=== PATIENT | male | born 1950 | race Caucasian/White ===

== ENCOUNTER 2018-03-30 00:52 | Emergency (ER) | payer SELFPAY ==
[2018-03-30] MEDS ORDERED: MAGNESIUM SULF 1GM/2ML VIAL IV ONE (00:53)
[2018-03-30] MEDS ORDERED: NA CHLORIDE 0.9% 1,000 ML IV ONE (00:53)
[2018-03-30] MEDS ORDERED: Caclcium Chloride 10% INJ SYR IV ONE (00:53)
[2018-03-30] MEDS ORDERED: ATROPINE SULF 1 MG/10 ML SYR IV ONE (00:53)
[2018-03-30] MEDS ORDERED: EPINEPHrine 1 MG/10 ML SYR IV ONE (00:53)
[2018-03-30 01:27] LABS: Protime INR 1.1
[2018-03-30 01:29] LABS: Absolute Lymphocytes (CBC) 4.7 K/uL (0.7-4.9); Absolute Neutrophil 7.9 K/uL (1.8-8.0); Basophils % 0.8 % (0-1.3); Eosinophils % 2.7 % (0-4.4); Hematocrit 53.8 % (39.6-49.0); Lymphocytes % 33.3 % (15.3-44.8); MCH 31.2 pg (27.0-35.0); MCV 94.8 fL (80-100); MPV 8.9 fL (7.6-11.3); Monocytes % 7.3 % (3.3-12.3); RBC Red Blood Cell Count 5.67 M/uL (4.33-5.43)
[2018-03-30 01:40] LABS: ALT/SGPT 34 U/L (12-78); AST/SGOT 19 U/L (15-37); Albumin 3.5 g/dL (3.4-5.0); Alkaline Phosphatase 130 U/L (45-117); BUN Blood Urea Nitrogen 25 mg/dL (7-18); Bicarbonate 24 mmol/L (21-32); Bilirubin Direct 0.5 mg/dL (0-0.2); Bilirubin Total 1.8 mg/dL (0.2-1.0); Glucose Level 205 mg/dL (74-106); Magnesium 2.4 mg/dL (1.8-2.4); NT PRO-BNP 1078 pg/mL (<125); Potassium 3.6 mmol/L (3.5-5.1); Protein, Total 6.9 g/dL (6.4-8.2); Sodium Level 134 mmol/L (136-145); Troponin (Emerg Dept Use Only) < 0.02 ng/mL (0.0-0.045)
--- NOTE | 2018-03-30 01:46 | EDPHYS ---
Physician Documentation [facility] Name: Torres Cobb Age: 67 yrs Sex: Male : 1950 Arrival Date: 03/30/2018 Time: 00:52 Bed 3 Private MD: ED Physician Segun Weber HPI: 03/30 02:26 This 67 yrs old Male presents to ER via Unassigned with complaints of CPR. ma2 01:21 The patient or guardian reports chest pain that is located primarily in the anterior ma2 chest wall. Onset:. 01:22 The chest pain is described as burning. Duration: The patient or guardian reports a ma2 single episode, that lasted 1 hour(s). EMS care prior to arrival includes: epinephrine, IV fluids, supplemental oxygen. hx of copd had chest pain and sob while driving when ems, then he passed out and had no pulse. his passenger friend started cpr until ems arrived for 8 min.. EMS found he he had v-fib and defibrillated him, he had pulse right after 2 round of epi, upon arrival to er he had STEMI with complete heart block given atropine and placed on transcutaneous pacemaker and had BP 120/80, he lost pulse in the er briefly and had 3 rounds of epinephrine was asystolic during this time and cpr then had ROSC.. was intubated by EMS ET tube confirmed by CXR. Historical: - PMHx: 03:41 Unable to obtain; bb - Immunization history:: Last tetanus immunization: unknown, Flu vaccine status is unknown. - Social history:: Patient/guardian denies using alcohol, street drugs, The patient lives with family, Smoking status: Patient/guardian denies using tobacco, Patient uses alcohol, on a daily basis. - Family history:: not pertinent. - Ebola Screening: : Patient negative for fever greater than or equal to 101.5 degrees Fahrenheit, and additional compatible Ebola Virus Disease symptoms Patient denies exposure to infectious person Patient denies travel to an Ebola-affected area in the 21 days before illness onset. ROS: 01:22 Unable to obtain ROS due to patient is on ventilator. ma2 Exam: 01:22 Male : Normal genitalia with no discharge or lesions. Skin: Warm, dry with normal ma2 turgor. Normal color with no rashes, no lesions, and no evidence of cellulitis. 01:22 Constitutional: The patient appears comatose. 01:22 Head/face: Noted is 01:31 Chest/axilla: Inspection: no acute changes. ma2 01:31 Cardiovascular: Rate: bradycardic, Rhythm: regular, Pulses: weak, Edema: 2+ edema to level of left midcalf and right midcalf, Bilateral blood pressure: is equal. 01:31 Respiratory: intubated ventilated equal air entry bilat, tube at 23 at lip. 01:31 Abdomen/GI: Inspection: distension, Palpation: soft, Liver: no appreciated palpable abnormalities. 01:31 Musculoskeletal/extremity: Extremities: all appear grossly normal, with no appreciated pain with palpation. 01:31 Neuro: gcs 3. Vital Signs: 00:49 BP 160 / 107; Pulse 38; Resp 16; Temp 95.7(R); Pulse Ox 90% on ETT ambu; Weight 127.01 fc kg (R); Height 5 ft. 11 in. (180.34 cm) (R); Pain 0/10; 01:00 BP 82 / 61; Pulse 100; Resp 16; Pulse Ox 100% on 100% FiO2 ETT vent; fc 01:18 BP 164 / 85; Pulse 122; Resp 16; Pulse Ox 88% on 100% FiO2 ETT vent; fc 01:28 BP 155 / 85; Pulse 92; Resp 16; Pulse Ox 87% on 100% FiO2 ETT vent; fc 01:34 BP 204 / 89; Pulse 117; Resp 16; Pulse Ox 87% on 100% FiO2 ETT vent; fc 01:38 BP 170 / 111; Pulse 149; Resp 16; Pulse Ox 94% on 100% FiO2 ETT vent; fc 01:47 BP 218 / 128; Pulse 127; Resp 16; Pulse Ox 91% on ETT ambu; fc 01:54 BP 107 / 76; Pulse 120; Resp 16; Pulse Ox 90% on ETT ambu; fc 01:59 BP 64 / 55; Pulse 110; Resp 18; Pulse Ox 86% on 100% FiO2 ETT vent; fc 02:05 BP 73 / 53; Pulse 84; Resp 18; Pulse Ox 92% on 100% FiO2 ETT vent; fc 02:08 BP 199 / 99; Pulse 96; Resp 18; Pulse Ox 91% on 100% FiO2 ETT vent; fc 02:14 BP 164 / 84; Pulse 122; Resp 16; Pulse Ox 96% on 100% FiO2 ETT vent; fc 02:19 BP 97 / 74; Pulse 116; Resp 16; Pulse Ox 93% on 100% FiO2 ETT vent; fc 02:28 BP 83 / 71; Pulse 108; Resp 16; Pulse Ox 91% on 100% FiO2 ETT vent; fc 02:28 BP 93 / 73; Pulse 108; Resp 18; Pulse Ox 90% on 100% FiO2 ETT vent; fc 00:49 Body Mass Index 39.05 (127.01 kg, 180.34 cm) fc Benjamin Coma Score: 00:49 Eye Response: none(1). Verbal Response: none(1). Motor Response: none(1). Total: 3. fc 01:31 Eye Response: none(1). Verbal Response: none(1). Motor Response: none(1). Total: 3. ma2 Ventilator: 00:52 Fi02: 100%; Rate: 16min; T.V.: 700ml; Mode: CMV; ET tube: 23 mm (Oral); fc Procedures: 01:31 CPR: The presenting cardiac rhythm is asystole. placed on ventilator, Compressions: ma2 began Meds given: Epinephrine X 2, Pacing: the patient was paced with an external pacer, rate set at 100 beats/min., current set at 100 milliamps., set in. MDM: 01:20 Patient medically screened. ma2 01:31 Differential diagnosis: acute myocardial infarction, coronary artery disease pulmonary ma2 embolus, thoracic aortic disection. Data reviewed: vital signs, nurses notes. Counseling: I had a detailed discussion with the patient and/or guardian regarding: the historical points, exam findings, and any diagnostic results supporting the discharge/admit diagnosis. ED course: patient had inferior STEMI, stable for transfer pulse of 100 and BP 180/80, he is intubated, will emergently transfer for cath, will fly him, cath not available in our hospital . ED course: discussed and accepted by Dr. Wiseman. 03/30 00:57 Order name: Basic Metabolic Panel; Complete Time: 01:58 03/30 00:57 Order name: CBC with Diff 03/30 00:57 Order name: LFT's; Complete Time: 01:59 03/30 00:57 Order name: Magnesium; Complete Time: 01:59 03/30 00:57 Order name: NT PRO-BNP; Complete Time: 01:59 03/30 00:57 Order name: PT-INR; Complete Time: 01:59 03/30 00:53 Order name: Chest Single View XRAY 03/30 00:57 Order name: Troponin (emerg Dept Use Only); Complete Time: 01:59 03/30 01:44 Order name: Manual Differential EDMS 03/30 02:24 Order name: Slides for Pathologist Review EDMS 03/30 00:57 Order name: EKG; Complete Time: 00:57 03/30 00:57 Order name: Cardiac monitoring; Complete Time: 02:22 03/30 00:57 Order name: EKG - Nurse/Tech; Complete Time: 02:22 03/30 00:57 Order name: IV Saline Lock; Complete Time: 02:22 03/30 00:57 Order name: Labs collected and sent; Complete Time: 02:22 03/30 00:57 Order name: O2 Per Protocol; Complete Time: 02:22 03/30 00:57 Order name: O2 Sat Monitoring; Complete Time: 02:23 Administered Medications: 00:53 Drug: Atropine 1 mg {Note: Adina.} Route: IVP; Site: right antecubital; 00:59 Drug: NS 0.9% 1000 ml {Note: per Nichol RN.} Route: IV; Rate: 1 bolus; Site: left fc antecubital; 01:11 Drug: EPINEPHrine 0.1mg/mL 1:10,000 1 mg {Note: per Nichol RN.} Route: IVP; Site: right fc antecubital; 01:13 Drug: Sodium Bicarbonate 1 amp {Note: per Nichol RN.} Route: IVP; Site: right fc antecubital; 01:14 Drug: EPINEPHrine 0.1mg/mL 1:10,000 1 mg {Note: per Nichol RN.} Route: IVP; Site: right fc antecubital; 01:17 Drug: EPINEPHrine 0.1mg/mL 1:10,000 1 mg {Note: per Nichol RN.} Route: IVP; Site: right fc antecubital; 01:28 Drug: Sodium Bicarbonate 1 amp {Note: per Nichol RN.} Route: IVP; Site: left fc antecubital; 01:31 Drug: Atropine 1 mg {Note: 1/2 amp per Nichol RN.} Route: IVP; Site: left antecubital; fc 01:32 Drug: EPINEPHrine 0.1mg/mL 1:10,000 1 mg {Note: per Nichol RN.} Route: IVP; Site: left fc antecubital; 01:45 Drug: EPINEPHrine 0.1mg/mL 1:10,000 1 mg {Note: per Nichol RN.} Route: IVP; Site: left fc antecubital; 01:46 Drug: Calcium Chloride 10% 10 ml {Note: per Nichol RN.} Route: IVP; Site: left fc antecubital; 01:47 Drug: NS 0.9% 1000 ml {Note: per Nichol RN.} Route: IV; Rate: 1 bolus; Site: left fc antecubital; 01:52 Drug: Magnesium Sulfate 2 grams {Note: per Nichol RN.} Route: IVPB; Infused Over: 2 fc mins; Site: left antecubital; 01:58 Not Given (blood noted in NGT): Heparin ([place] Drip) 12 units/kg/hr - (HEParin 34523 kl units, D5W 500 ml) IV at calculated rate Per protocol; Max initial rate 1000 units/hr 02:03 Not Given (blood noted in NGT): HEParin 5000 units IV at bolus once kl 02:04 Drug: Levophed (4 mg/250 mL D5W 4 mcg/min {Note: per nichol rn.} Route: IV; Rate: fc calculated rate; Site: left antecubital; 02:07 Drug: EPINEPHrine 0.1mg/mL 1:10,000 1 mg {Note: per Nichol RN.} Route: IVP; Site: right fc antecubital; 02:12 Drug: Pantoprazole 8 mg/hr {Note: per Nichol RN.} Route: IV; Rate: 25 ml/hr; Site: fc right antecubital; 02:23 Drug: Pantoprazole 40 mg {Note: per Shaunna.} Route: IVP; Site: right antecubital; 02:35 Not Given (wrongorder): Calcium Chloride 1 grams IVP once fc Point of Care Testing: Blood Glucose: 00:57 Blood Glucose: 159 mg/dL; fc Ranges: Critical Glucose Levels:Adult <50 mg/dl or >400 mg/dl <40 mg/dl or >180 mg/dl Disposition: 03/30/18 01:[address] [facility]. Diagnosis is ST elevation (STEMI) myocardial infarction of unspecified site. - Reason for transfer: Higher level of care. - Accepting physician is Dr. Wiseman. - Condition is Stable. - Problem is new. - Symptoms are unchanged. Signatures: Dispatcher [employer] EDMS Liat Mendoza RN RN fc Nichol Alvares RN RN bb Alzahri, Mohammad, MD MD ma2 Bev Taylor RN Corrections: (The following items were deleted from the chart) 03:42 01:45 03/30/2018 01:[address] [facility]. Diagnosis is bb ST elevation (STEMI) myocardial infarction of unspecified site. Reason for transfer: Higher level of care. Accepting physician is Dr. Wiseman. Condition is Stable. Problem is new. Symptoms are unchanged. ma2
--- NOTE | 2018-03-30 01:46 | ER ---
Nurse's Notes [facility] Name: Torres Cobb Age: 67 yrs Sex: Male : 1950 Arrival Date: 03/30/2018 Time: 00:52 Bed 3 Private MD: Diagnosis: ST elevation (STEMI) myocardial infarction of unspecified site Presentation: 03/30 00:49 Presenting complaint: EMS states: that they were toned for pt with chest pain, upon fc their arrival pt was in fine vfib with bystanders performing CPR. son arrived at 0100 to state that he and pt had just left local bar in separate cars. Approx 3 blocks later pt pulled over. Then son pulled over behind him. Upon getting to pt's car pt was unresponsive and blue. He started CPR and called 911. Care prior to arrival: Assisted ventilation, Oral intubation, CPR performed by bystander Shocked x 2, ETT is an 8.0 tube 23 at the lip Medication(s) given: Normal saline infusion, 500 mL, EPI x 2 IV initiated. 18 GA, in the right antecubital area, and I/O to left Tib Glucose check: 169 Oxygen administered. via AMBU bag. Compressions began prior to arrival. 00:49 Method Of Arrival: EMS: [facility] 00:49 Acuity: STEPHEN 1 00:49 Transition of care: patient was not received from another setting of care. Onset of symptoms was March 30, 2018. Risk Assessment: Do you want to hurt yourself or someone else? Patient reports no desire to harm self or others. Initial Sepsis Screen: Does the patient meet any 2 criteria? Systolic BP < 90 mmHg. Mean Arterial Pressure (MAP) < 65. Yes Does the patient have a suspected source of infection? No. Patient's initial sepsis screen is negative. Triage Assessment: 01:00 General: Appears distressed, obese, Behavior is unresponsive. Pain: Unable to use pain bb scale. FLACC scale score is 0 out of 10. Patient is intubated. Patient is unresponsive. Neuro: Level of Consciousness is unresponsive. Cardiovascular: pt is cyanotic. faint pulse palpated by Dr Catalan Rhythm is sinus bradycardia. Respiratory: Airway via oral intubation Respiratory effort is assisted bagged with BVM Breath sounds with crackles bilaterally. GI: Abdomen is distended, Abd is rigid X 4 quads. Derm: Skin is cyanotic. Historical: - PMHx: 03:41 Unable to obtain; bb - Immunization history:: Last tetanus immunization: unknown, Flu vaccine status is unknown. - Social history:: Patient/guardian denies using alcohol, street drugs, The patient lives with family, Smoking status: Patient/guardian denies using tobacco, Patient uses alcohol, on a daily basis. - Family history:: not pertinent. - Ebola Screening: : Patient negative for fever greater than or equal to 101.5 degrees Fahrenheit, and additional compatible Ebola Virus Disease symptoms Patient denies exposure to infectious person Patient denies travel to an Ebola-affected area in the 21 days before illness onset. Screenin:49 Abuse screen: Denies threats or abuse. Nutritional screening: No deficits noted. Tuberculosis screening: No symptoms or risk factors identified. 01:00 Fall Risk Total Campo Fall Scale indicates High Risk Score (45 or more points). Fall bb prevention measures have been instituted. Side Rails Up X 2 Frequent Obs/Assessments Occuring. Assessment: 01:00 Reassessment: No changes from previously documented assessment. see triage assessment. bb 01:00 CPR assessment: unresponsive, intubated, Ambu ventilation. bb 01:09 Reassessment: Dr Catalan at bedside for code. bb 01:36 Reassessment: Son at bedside and spoke with Dr Weber. 01:41 Reassessment: and Daughter have arrived and are at bedside. 01:45 Reassessment: family instructed on need to transfer pt to [facility] for higher level of care they verbalized understanding of and agree to plan of care. 01:51 Reassessment: Son given pts [employer] Lic. has left the room and is waiting room at this time. 02:19 Reassessment: Report called to Leroy PAYNE at [facility]. ea 02:35 Reassessment: [facility] at bedside for transport of pt to [facility]. bb Pt remains unresponsive, ETT in place, IV sites intact, patent, with fluids infusing, OG tube in place to low intermittent suction with nicola blood in tube, benitez catheter in place. Pt transferred to EMS stretcher with no change in condition. Vital Signs: 00:49 BP 160 / 107; Pulse 38; Resp 16; Temp 95.7(R); Pulse Ox 90% on ETT ambu; Weight 127.01 fc kg (R); Height 5 ft. 11 in. (180.34 cm) (R); Pain 0/10; 01:00 BP 82 / 61; Pulse 100; Resp 16; Pulse Ox 100% on 100% FiO2 ETT vent; fc 01:18 BP 164 / 85; Pulse 122; Resp 16; Pulse Ox 88% on 100% FiO2 ETT vent; fc 01:28 BP 155 / 85; Pulse 92; Resp 16; Pulse Ox 87% on 100% FiO2 ETT vent; fc 01:34 BP 204 / 89; Pulse 117; Resp 16; Pulse Ox 87% on 100% FiO2 ETT vent; fc 01:38 BP 170 / 111; Pulse 149; Resp 16; Pulse Ox 94% on 100% FiO2 ETT vent; fc 01:47 BP 218 / 128; Pulse 127; Resp 16; Pulse Ox 91% on ETT ambu; fc 01:54 BP 107 / 76; Pulse 120; Resp 16; Pulse Ox 90% on ETT ambu; fc 01:59 BP 64 / 55; Pulse 110; Resp 18; Pulse Ox 86% on 100% FiO2 ETT vent; fc 02:05 BP 73 / 53; Pulse 84; Resp 18; Pulse Ox 92% on 100% FiO2 ETT vent; fc 02:08 BP 199 / 99; Pulse 96; Resp 18; Pulse Ox 91% on 100% FiO2 ETT vent; 02:14 BP 164 / 84; Pulse 122; Resp 16; Pulse Ox 96% on 100% FiO2 ETT vent; 02:19 BP 97 / 74; Pulse 116; Resp 16; Pulse Ox 93% on 100% FiO2 ETT vent; 02:28 BP 83 / 71; Pulse 108; Resp 16; Pulse Ox 91% on 100% FiO2 ETT vent; fc 02:28 BP 93 / 73; Pulse 108; Resp 18; Pulse Ox 90% on 100% FiO2 ETT vent; 00:49 Body Mass Index 39.05 (127.01 kg, 180.34 cm) [place] Coma Score: 00:49 Eye Response: none(1). Verbal Response: none(1). Motor Response: none(1). Total: 3. fc 01:31 Eye Response: none(1). Verbal Response: none(1). Motor Response: none(1). Total: 3. ma2 ED Course: 00:49 Maintain EMS IV. Dressing intact. Good blood return noted. Site clean \T\ dry. Gauge \T\ fc site: Left tib IO and 18 gauge to right a/c. 00:49 Patient has correct armband on for positive identification. Bed in low position. Call fc light in reach. 00:52 Patient arrived in ED. al2 00:55 Inserted saline lock: 18 gauge in left antecubital area, using aseptic technique. fc ,using aseptic technique. per Kyle Tech. 01:00 EKG done, by ED staff, reviewed by Segun Weber MD. fc 01:00 with code see code sheet. bb 01:00 Patient placed in an exam room, on a stretcher, on oxygen, on airport screener, on pulse bb oximetry, Dr Miramontes at bedside with this RN, Liat RN, Tiffanie RN, Yong RT, Nicholas RT, [place] oil burner technician at bedside to receive pt. 01:05 NGT: inserted 18 Fr. other orally verified return of gastric contents, to intermittent fc suction. return dark bloody liquid. 01:06 Benitez cath inserted, using sterile technique, 16 Fr., by psychiatric aides teacher, balloon inflated, to fc gravity drainage. 01:07 X-ray completed. Portable x-ray completed in exam room. sg4 01:10 Chest Single View XRAY In Process Unspecified. EDMS 01:20 Segun Weber MD is Attending Physician. ma2 01:49 EKG done, by ED staff, reviewed by Segun Weber MD. fc 02:35 Patient transferred, IV remains in place. bb 03:01 Triage completed. fc Administered Medications: 00:53 Drug: Atropine 1 mg {Note: Adina.} Route: IVP; Site: right antecubital; 00:59 Drug: NS 0.9% 1000 ml {Note: per Nichol PAYNE.} Route: IV; Rate: 1 bolus; Site: left fc antecubital; 01:11 Drug: EPINEPHrine 0.1mg/mL 1:10,000 1 mg {Note: per Nichol PAYNE.} Route: IVP; Site: right fc antecubital; 01:13 Drug: Sodium Bicarbonate 1 amp {Note: per Nichol PAYNE.} Route: IVP; Site: right fc antecubital; 01:14 Drug: EPINEPHrine 0.1mg/mL 1:10,000 1 mg {Note: per Nichol RN.} Route: IVP; Site: right fc antecubital; 01:17 Drug: EPINEPHrine 0.1mg/mL 1:10,000 1 mg {Note: per Nichol RN.} Route: IVP; Site: right fc antecubital; 01:28 Drug: Sodium Bicarbonate 1 amp {Note: per Nichol RN.} Route: IVP; Site: left fc antecubital; 01:31 Drug: Atropine 1 mg {Note: 1/2 amp per Ncihol RN.} Route: IVP; Site: left antecubital; 01:32 Drug: EPINEPHrine 0.1mg/mL 1:10,000 1 mg {Note: per Nichol RN.} Route: IVP; Site: left fc antecubital; 01:45 Drug: EPINEPHrine 0.1mg/mL 1:10,000 1 mg {Note: per Nichol RN.} Route: IVP; Site: left fc antecubital; 01:46 Drug: Calcium Chloride 10% 10 ml {Note: per Nichol RN.} Route: IVP; Site: left fc antecubital; 01:47 Drug: NS 0.9% 1000 ml {Note: per Nichol RN.} Route: IV; Rate: 1 bolus; Site: left fc antecubital; 01:52 Drug: Magnesium Sulfate 2 grams {Note: per Nichol RN.} Route: IVPB; Infused Over: 2 fc mins; Site: left antecubital; 01:58 Not Given (blood noted in NGT): Heparin ([place] Drip) 12 units/kg/hr - (HEParin 57254 kl units, D5W 500 ml) IV at calculated rate Per protocol; Max initial rate 1000 units/hr 02:03 Not Given (blood noted in NGT): HEParin 5000 units IV at bolus once kl 02:04 Drug: Levophed (4 mg/250 mL D5W 4 mcg/min {Note: per nichol rn.} Route: IV; Rate: fc calculated rate; Site: left antecubital; 02:07 Drug: EPINEPHrine 0.1mg/mL 1:10,000 1 mg {Note: per Nichol RN.} Route: IVP; Site: right fc antecubital; 02:12 Drug: Pantoprazole 8 mg/hr {Note: per Nichol PAYNE.} Route: IV; Rate: 25 ml/hr; Site: fc right antecubital; 02:23 Drug: Pantoprazole 40 mg {Note: per } Route: IVP; Site: right antecubital; 02:35 Not Given (wrongorder): Calcium Chloride 1 grams IVP once fc Point of Care Testing: Blood Glucose: 00:57 Blood Glucose: 159 mg/dL; fc Ranges: Ventilator: 00:52 Fi02: 100%; Rate: 16min; T.V.: 700ml; Mode: CMV; ET tube: 23 mm (Oral); fc Outcome: 01:45 ER care complete, transfer ordered by MD. powell 02:30 Outcome Resuscitation successful bb 02:35 Transferred by helicopter to [facility], Transfer form completed. X-rays sent bb w/ patient. 02:35 Condition: improved 02:35 Instructed on family instructed on need for transfer see nurses notes. 03:42 Patient left the ED. bb Signatures: Dispatcher [employer] EDMS Liat Mendoza RN RN Nichol Alvares RN RN Tiffanie Foster, RN RN Sonia Read Mohammad, MD MD ma2 Garcia, Susana sg4 Lewis, Kimberly RN kl Corrections: (The following items were deleted from the chart) 02:54 02:45 Inserted saline lock: 18 gauge in left antecubital area, using aseptic technique. fc ,using aseptic technique. per Where I've Been fc 03:19 03:17 Reassessment: and Daughter have arrived and are at bedside fc fc
[2018-03-30] MEDS ORDERED: HEPARIN/D5W 25,000 UNIT/500 ML BAG IV ONE (02:04)
[2018-03-30] MEDS ORDERED: HEPARIN 5000 UNIT/ML 1 ML VIAL ONE (02:04)
[2018-03-30] MEDS ORDERED: NOREPINEPHRINE 4 MG/4 ML VIAL ONE (02:10)
[2018-03-30] MEDS ORDERED: D5W 250 ML IV ONE (02:11)
[2018-03-30] MEDS ORDERED: PANTOPRAZOLE 40 MG INJ ONE ×2 (02:12→02:14)
[2018-03-30] MEDS ORDERED: NA CHLORIDE 0.9% 250 ML ONE (02:14)
[2018-03-30 02:22] LABS: Blood Morphology Comment NOT SEEN (NOT SEEN); Platelet Estimate ADEQ
[2018-03-30 03:47] LABS: Arterial Blood Carboxyhemoglob 0.9 % (0-1.5); Blood Gas Oxyhemoglobin 89.9 % (94-97); Blood O2 Saturation 91.7 % (92-98.5)
--- NOTE | 2018-03-30 08:04 | RAD REPORT ---
EXAM DESCRIPTION: RAD - Chest Single View - 03/30/2018 1:10 am CLINICAL HISTORY: Intubation COMPARISON: None. TECHNIQUE: AP portable chest image was obtained 0053 hours . FINDINGS: Endotracheal tube is in place. Tip is the T5 level top of the aortic arch. This is at leas t 2 cm above the lux. Patchy airspace opacification is present in the right lung base suspicious f or pneumonia. Lung markings are accentuated by supine portable imaging and shallow inspiration. Cardi omediastinal silhouette is enlarged. This is difficult to accurately assess due to supine positioning and shallow inspiration. No pneumothorax or large pleural effusion. No acute bony abnormality seen. No acute aortic findings suspected. IMPRESSION: ET tube in good position. Patchy right base opacification suspicious for pneumonia. Enlarged cardiomediastinal silhouette. Assessment is limited with shallow inspiration and supine posi tioning.
--- NOTE | 2018-03-30 15:17 | EKG ---
Test Date: 2018-03-30 Test Time: 01:00:06 [employer] Sales Consultant: MODESTO MEASUREMENT RESULTS: Intervals: Rate: 33 CT: QRSD: 216 QT: 546 QTc: 404 [place]: P: CT: QRS: 269 T: 70 INTERPRETIVE STATEMENTS: Idioventricular rhythm Right bundle branch block Inferior infarct, age undetermined Abnormal ECG No previous ECG available for comparison Electronically Signed On 03-30-18 15:16:40 GREASE MAKER HEAD by Peter Ferreira
--- NOTE | 2018-03-31 11:35 | EKG ---
Test Date: 2018-03-30 Test Time: 01:49:35 Energy Assistant: MEASUREMENT RESULTS: Intervals: Rate: 129 [place]: QRSD: 164 QT: 364 QTc: 533 [place]: P: CA: QRS: 159 T: 30 INTERPRETIVE STATEMENTS: Ventricular tachycardia Abnormal ECG Compared to ECG 03/30/2018 01:00:06 Ventricular tachycardia now present Idioventricular rhythm no longer present Electronically Signed On 03-31-18 11:35:07 FOOD AND BEVERAGE ASSOCIATE by Peter Ferreira
== END 2018-03-30 03:42 | disposition short-term general hospital (02) ==
LOC: ER 00:52
PROC: 5A02210 Assistance with Cardiac Output using Balloon Pump, Continuous (ICD-10-PCS; principal; 2018-03-30)
DX: I21.3 ST elevation (STEMI) myocardial infarction of unspecified site (principal)
CPT/HCPCS: 36415; 51702; 71045; 80048; 80076; 82805; 82962; 83735; 83880; 84484; 85025; 85610; 92950; 92953; 93005; 94002; 99291; C9113; J0171; J1644; J3475; J7030; J7060